=== PATIENT | male | born 2000 | race Native Hawaiian/Other Pacific Islander ===

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

== ENCOUNTER 2022-10-27 14:01 | Emergency (ER) | payer OTHER ==
[~2022-10-27] VITALS: Ht 193 cm; Wt 113.4 kg
[2022-10-27 14:05] VITALS: TEMP 99
[2022-10-27 15:52] LABS: PLATELET COUNT 183 K/uL (142-355)
[2022-10-27 16:00] LABS: POTASSIUM 3.5 mmol/L (3.6-5.2)
[2022-10-27 16:35] VITALS: BP 110/62
== END 2022-10-27 16:35 | disposition home or self-care (01) ==
LOC: ED 14:01
PROVIDERS: Family Medicine
DX: S06.0X0A Concussion without loss of consciousness, initial encounter (principal); S13.4XXA Sprain of ligaments of cervical spine, initial encounter; M54.89 Other dorsalgia; V49.50XA Passenger injured in collision with unspecified motor vehicles in traffic accident, initial encounter; Y92.89 Other specified places as the place of occurrence of the external cause
CPT/HCPCS: 36600; 80053; 80307; 81002; 82805; 85027; 93005; 99283